=== PATIENT | female | born 1985 | race Caucasian/White ===

== ENCOUNTER 2021-10-09 11:25 | Emergency (ER) | payer OTHER, SELFPAY ==
--- NOTE | ~2021-10-09 | US_ITS ---
EXAMINATION: US OB follow up DATE: 10/09/2021 15:15 INDICATION: Left lower quadrant pain for one day TECHNIQUE: Real-time transabdominal obstetric ultrasound. FINDINGS: No prior studies for comparison. There is a single living fetus in vertex presentation. cardiac activity and movement is noted with a heart rate of 147 beats per minute. T he amniotic fluid volume is subjectively normal. Left ovary is unremarkable. The following biometric data were obtained: BPD: 26mm corresponds to gestational age 14 weeks 3 days. Head circumference: 96mm corresponds to gestational age 14 weeks 3 days. Abdominal circumference: 79mm corresponds to gestational age 14 weeks 2 days. Femur length: 11mm corresponds to gestational age 13 weeks 2 days. Estimated weight: 84grams +/- 13grams.] IMPRESSION: 1. Single living intrauterine in vertex presentation with an estimated gestational age of 14 weeks 1 days by inititial ultrasound. EDC by current measurements is 04/08/2022. Reviewed, dictated and finalized at location A. IMPRESSION: 1. Single living intrauterine in vertex presentation with an estimat ed gestational age of 14 weeks 1 days by inititial ultrasound. EDC by current m easurements is 04/08/2022.
[2021-10-09 11:40] VITALS: BP 116/77; PULSE 98; RESP 16; TEMP 36.4; O2SAT 97
[2021-10-09 12:12] LABS: Basophils Absolute Auto 0.1 K/mm3 (0.0-0.1); Basophils Percent Auto 0.8 % (0.2-1.2); Eosinophils Absolute Auto 0.1 K/mm3 (0-0.3); Eosinophils Percent Auto 1.3 % (0-4.4); Hematocrit 40.5 % (37.0-47.0); Immature Granulocyte Absolute 0.03 K/mm3 (0.00-0.031); Immature Granulocyte Percent A 0.3 % (0-0.5); Lymphocytes Absolute Auto 2.05 K/mm3 (0.9-3.2); Lymphocytes Percent Auto 22.9 % (18.3-44.2); Mean Corpuscular HGB Conc 32.1 g/dl (32-36); Mean Corpuscular Hemoglobin 27.4 pg (26-34); Mean Corpuscular Volume 85.3 fl (80-100); Mean Platelet Volume 10.3 fl (7.4-10.4); Monocytes Absolute Auto 0.4 K/mm3 (0.1-0.6); Monocytes Percent Auto 4.8 % (2.6-8.5); Neutrophils Absolute Auto 6.3 K/mm3 (1.3-6.7); Neutrophils Percent Auto 69.9 % (45.5-73.1); Platelet Count Result 263 k/mm3 (150-375); Red Blood Count 4.75 M/mm3 (4.2-5.4); Red Cell Distribution Width 13.2 % (11.5-14.5)
--- NOTE | 2021-10-09 12:12 | PC.NURSE ---
preg test canceled due to pt being 12weeks
[2021-10-09 12:14] LABS: Appearance Urine Slightly Cloudy (Clear); Bilirubin Urine Negative (Negative); Blood Urine Negative (Negative); Color Urine Yellow (Yellow); Glucose Urine UA Negative (Negative); Ketones Urine Negative (Negative); Leukocyte Esterase Ur Trace LEU/UL (Negative); Nitrate Urine Negative (Negative); Protein Urine Negative (Negative); Specific Grav Ur 1.025 (1.001-1.035); Urobilinogen Urine 0.2 mg/dL (<2.0)
[2021-10-09 12:19] LABS: Bacteria Urine Trace /hpf; Mucus Urine Few /lpf; Squamous Epithelial Cell Urine Many /hpf (Few)
[2021-10-09 12:22] LABS: Alanine Aminotransferase 11 U/L (6-35); Albumin Level 3.8 g/dL (3.5-5.1); Alkaline Phosphatase 56 U/L (38-126); Anion Gap 6 mmol/L (8-16); Aspartate Amino Transferase 15 U/L (14-36); Bilirubin,Total 0.2 mg/dL (0.2-1.3); Blood Urea Nitrogen 10 mg/dL (7-17); Calcium 8.8 mg/dL (8.4-10.2); Carbon Dioxide 25 mmol/L (22-30); Chloride 104 mmol/L (98-107); Estimated CRCL calculation 95 ml/min; Estimated Glomerular Filt Rate > 60; Glucose 105 mg/dL (65-110); Lipase 26 U/L (23-300); Potassium 4.2 mmol/L (3.4-5.0); Sodium 135 mmol/L (137-145)
[2021-10-09 12:29] LABS: Add Urine Microscopic? YES
--- NOTE | 2021-10-09 12:45 | ED.ABDPAIN ---
HPI - Abdominal Pain General Chief Complaint: Abdominal Pain <KASSANDRA Al Last Filed: 10/09/21 19:52> Stated Complaint: abd and back pain <KASSANDRA Al Last Filed: 10/09/21 19:52> Time Seen by Provider: 10/09/21 12:43 <KASSANDRA Al Last Filed: 10/09/21 19:52> Source: patient <KASSANDRA Al Last Filed: 10/09/21 19:52> Mode of arrival: ambulatory <KASSANDRA Al Last Filed: 10/09/21 19:52> Limitations: no limitations <KASSANDRA Al Last Filed: 10/09/21 19:52> History of Present Illness HPI narrative: Patient is a 36-year-old female who presents to the ED with report of lower abdomen and lower back pain. Patient reports she has had a confirmed positive urine and blood test. She is unsure how far along she is. Last normal menstrual period was in July. She is scheduled to have her first [employer] appointment with a doctor in [place] on Sunday. Patient reports last night and into today she began to have pain in her lower back and lower abdomen, worst in her left lower quadrant. She has not tried anything for the pain. She notes she is currently in a drug treatment program and receives methadone daily. She was told her liver enzymes were recently elevated so she was unsure if she should take Tylenol. She denies any fever, chills, nausea, vomiting, diarrhea, constipation, vaginal bleeding, recent cough or cold symptoms, dysuria, hematuria. <KASSANDRA Al Last Filed: 10/09/21 19:52> Related Data Home Medications: Home Medications Medication Instructions Recorded Confirmed methadone 40 mg soluble tablet 90 mg PO DAILY 10/09/21 <KASSANDRA Al Last Filed: 10/09/21 19:52> Allergies/Adverse Reactions: Allergies Allergy/AdvReac Type Severity Reaction Status Date / Time No Known Allergies Allergy Verified 10/09/21 11:43 <KASSANDRA Al Last Filed: 10/09/21 19:52> Review of Systems Review of Systems: CONSTITUTIONAL: Denies fever, chills, or sweats. ENT: Denies rhinorrhea, congestion. CARDIOVASCULAR: Denies chest pain. RESPIRATORY: Denies cough or dyspnea. GASTROINTESTINAL: Reports lower ABD pain. Denies nausea, vomiting, constipation, or diarrhea. GENITOURINARY: Denies vaginal bleeding, dysuria or hematuria. SKIN: Denies rash or itching. MUSCULOSKELETAL: Denies back pain, joint pain, or myalgia. <Geraldine Kohler PA-C - Last Filed: 10/09/21 19:52> All systems reviewed & are unremarkable except as noted in HPI and below <Geraldine Kohler PA-C - Last Filed: 10/09/21 19:52> PMFSH Past Medical History Medical History: Medical History (Updated 10/10/21 @ 00:00 by Shant Dunlap) Anxiety History of opioid abuse <Geraldine Kohler PA-C - Last Filed: 10/09/21 19:52> Surgical History Surgical History: Surgical History (Updated 10/09/21 @ 13:53 by Geraldine Kohler PA-C) No pertinent past surgical history <Geraldine Kohler PA-C - Last Filed: 10/09/21 19:52> Social History Social History: Social History (Updated 10/09/21 @ 13:53 by Geraldine Kohler PA-C) Substance use: former Substance use type: opiates <Geraldine Kohler PA-C - Last Filed: 10/09/21 19:52> Exam Narrative: GENERAL: Well appearing, well-nourished, non-toxic, in no acute distress. NECK: Supple. No adenopathy, no masses. RESPIRATORY: Airway patent, respirations nonlabored. Clear to auscultation bilaterally, no rales, rhonchi, wheezing. CARDIOVASCULAR: Regular rate and rhythm without murmurs, rubs, or gallops. Peripheral pulses 2+ and equal bilaterally. ABDOMINAL: Soft, diffuse tenderness to palpation in lower abdomen, worst over left lower quadrant and suprapubic region. nondistended, no hepatosplenomegaly. Normoactive BS. MUSCULOSKELETAL: Moves all extremities. Strength/ROM intact without gross deformities. No midline thoracic or lumbar spinal tenderness. Mild paraspinal muscle tenderness i
[2021-10-09] MEDS: ACETAMINOPHEN 500 MG TABLET 1000 MG PO (13:55)
[2021-10-09 16:19] VITALS: BP 126/74; PULSE 72; RESP 16; O2SAT 99
== END 2021-10-09 16:21 | disposition home or self-care (01) ==
PROVIDERS: Physician Assistant; Emergency Provider Emergency Medicine
DX: O26.892 Other specified pregnancy related conditions, second trimester (principal); R82.71 Bacteriuria; O99.322 Drug use complicating pregnancy, second trimester; F11.10 Opioid abuse, uncomplicated; Z3A.14 14 weeks gestation of pregnancy
CPT/HCPCS: 36415; 76816; 80053; 81001; 83690; 84702; 85025; 87086; 87088; 99284; A9270